=== PATIENT | male | born 1950 | race Caucasian/White ===

== ENCOUNTER → 2021-12-09 | Outpatient (CLI) | payer BC ==
--- NOTE | 2021-12-09 16:30 | CT ---
EXAMINATION TYPE: CT angio chest DATE OF EXAM: 12/09/2021 COMPARISON: NONE HISTORY: Pulmonary Embolism. Shortness of breath. CT DLP: 554.4 mGycm. Automated Exposure Control for Dose Reduction was Utilized. CONTRAST: CTA scan of the thorax is performed with IV Contrast, patient injected with 72ml mL of Isovue 300, pu lmonary embolism protocol. MIP Images are created on CT scanner and reviewed. FINDINGS: LUNGS: Some scattered faint multifocal areas of groundglass opacity in the mid to lower lungs right s lightly more prominent than left. No pleural effusion or pneumothorax seen bilaterally. No suspicious focal consolidation. No pulmonary masses. The tracheobronchial tree is patent. MEDIASTINUM: There is satisfactory enhancement of the pulmonary artery and its branches, there is no CT evidence for pulmonary embolism. No thoracic aortic aneurysm or dissection. There are no greater t mcdaniel 1 cm hilar or mediastinal lymph nodes. No cardiomegaly or pericardial effusion is seen. Coronar y artery calcification is present which is noted marker for underlying coronary artery disease. OTHER: Exophytic 7.3 cm thin-walled cyst posteriorly in the left kidney is only partially imaged. The re is a shaped scoliosis with moderate to severe multilevel spurring in the spine. IMPRESSION: 1. No CT evidence for acute pulmonary embolism. 2. Bilateral multifocal faint mid to lower lung groundglass opacities greater in the right lung could reflect edema and/or developing infiltrates, correlate to exclude COVID-19 infection.
== END | disposition home or self-care (01) ==
LOC: RADCTMAIN 15:05
PROVIDERS: ATTEND Internal Medicine Critical Care Medicine
DX: R91.8 Other nonspecific abnormal finding of lung field (principal)
CPT/HCPCS: 82565; 84520; 71275; 36415; Q9967